=== PATIENT | female | born 1960 | race Caucasian/White ===

== ENCOUNTER 2017-11-27 21:01 | Inpatient (IN) | payer OTHER ==
[~2017-11-27] VITALS: Ht 167.6 cm; Wt 117.5 kg
[2017-11-27] MEDS ORDERED: LISINOPRIL10 MG (21:40)
[2017-12-09] MEDS ORDERED: AMLODIPINE BESYL5 MG PO (14:37)
[2017-12-09] MEDS ORDERED: HYDROCHLOROTH12.5 M1 PO (14:38)
[2017-12-09] MEDS ORDERED: LISINOPRIL10 MG PO (14:38)
[2017-12-09] MEDS ORDERED: BENZONATATE100 MG PO (14:38)
[2017-12-09] MEDS ORDERED: TUSSI-PRES B LIQ5 ML PO (14:39)
[2017-12-09] MEDS ORDERED: MEDROLPACK PO (14:40)
[2017-12-09] MEDS ORDERED: ZITHROMAX500 MG PO (14:41)
== END 2017-12-09 15:30 | disposition home or self-care (01) | DRG 153 ==
LOC: ER 21:01 → SEC-K 11-28 08:13 → MEDJ 11-28 11:13 → SEC-K 11-28 11:48 → MEDJ 12-01 08:33
PROVIDERS: Anesthesiology
PROC: BW28ZZZ Computerized Tomography (CT Scan) of Head (ICD-10-PCS; 2017-11-28)
PROC: 8E0ZXY6 Isolation (ICD-10-PCS; 2017-11-28)
PROC: 009U3ZX Drainage of Spinal Canal, Percutaneous Approach, Diagnostic (ICD-10-PCS; principal; 2017-11-28 14:00)
PROC: 3E0F7GC Introduction of Other Therapeutic Substance into Respiratory Tract, Via Natural or Artificial Opening (ICD-10-PCS; 2017-11-30)
DX: J06.0 Acute laryngopharyngitis (principal); J45.41 Moderate persistent asthma with (acute) exacerbation; I10 Essential (primary) hypertension; K29.00 Acute gastritis without bleeding; H53.143 Visual discomfort, bilateral